=== PATIENT | male | born 1985 | race Caucasian/White ===

== ENCOUNTER 2021-06-06 06:00 | Day surgery (SDC) | payer OTHER ==
[~2021-06-06] VITALS: Ht 177.8 cm; Wt 118.0 kg
[~2021-06-06 06:00] MED LIST: CLONIDINE HCL0.2 MG PO; KLONOPIN1 MG PO
--- NOTE | 2021-06-06 08:58 | NUR ---
06/06/21 0858 Debbie Lopez 0853 PATIENT ARRIVES TO PACU UNRESPONSIVE TO PAIN. ORAL AIRWAY IN PLACE, MASK AT 6 LITERS.
[2021-06-06] MEDS ORDERED: IBUPROFEN600 MG PO (09:10)
[2021-06-06] MEDS ORDERED: OXYCODON-ACETA1 EAC2 PO (09:10)
[2021-06-06] MEDS ORDERED: ACETAMINOPHEN500 MG PO (09:11)
--- NOTE | 2021-06-06 09:20 | NUR ---
PATIENT BACK TO ROOM FROM PACU ON . RECEIVED REPORT FROM SARITHA RUTLEDGE. PATIENT IS AWAKE. VSS. RATES PAIN 4/10, DENIES NAUSEA. PAIN MEDICATION GIVEN PER EMAR. DRESSING IS CLEAN, DRY, AND INTACT. PATIENT DRINKING WATER AND EATING PUDDING. CALL LIGHT WITHIN REACH.
--- NOTE | 2021-06-06 12:13 | NUR ---
PT RATHER ANXIOUS BUT PLEASANT. ALERT AND ORIENTED. HIS WILL TAKE HOME FOLLOWING DC. SPENT TIME ENCOURAGING PT, HE REQUESTED PRAYER. WILL FOLLOW NEEDED
--- NOTE | 2021-06-08 12:52 | OR ---
[facility] [address], [place] [address] Signed DATE OF OPERATION: 06/06/2021 SURGEON: Perez Kraft MD PREOPERATIVE DIAGNOSIS: Work related umbilical hernia, painful. POSTOPERATIVE DIAGNOSIS: Work related umbilical hernia, painful. PROCEDURE: Repair umbilical hernia without mesh. ANESTHESIA: General endotracheal, Colin Aaron CRNA and local 20 mL of 0.25% Marcaine with epinephrine. INDICATION: This 35-year-old white man is a patient of JASBIR Quiñonez and is referred with a work related hernia that had developed in the umbilicus. The patient has noted a bulge in the umbilical area. His pain is mostly in the inferior left aspect of the umbilicus. He had been doing work related lifting causing sudden onset of severe pain in the area while working at [employer]. He is admitted at this time to undergo repair of the hernia. The risk of bleeding, infection, recurrence, as well as the failure to cure his pain problem has been reviewed in detail, he understands and wished to proceed. FINDINGS: There was an umbilical defect no more than 2 cm in size. Circumferential evaluation of the properitoneal space showed no evidence of other fascial defect or other abnormality. Given the small size of the hernia, implantation of mesh was not undertaken. The repair was primarily that of transverse closure of the fascia. DESCRIPTION OF PROCEDURE: The patient was brought to the operating room, given a general anesthetic. Preoperative antibiotic Ancef was given. Sequential compression device stockings were used and heparin subcutaneously administered. The abdomen was clipped, prepared with chlorhexidine solution and draped sterilely. A curvilinear incision was made around the umbilicus to the left. Dissection was carried down through the subcutaneous tissue with Electronically Signed By: PEREZ KRAFT MD 06/08/21 1252 PATIENT NAME: MUSTAPHA TALLEY OPERATIVE REPORT DATE OF : 89 REPORT #: [id number] PHYSICIAN: PEREZ KRAFT MD PCP: ELDER CORONA PA-C REPORT IS CONFIDENTIAL AND NOT TO BE RELEASED WITHOUT AUTHORIZATION [facility] [address], [place] [address] Signed blunt electrocautery dissection. The umbilical skin was densely adherent to the fascia and was freed with blunt electrocautery dissection, but a buttonhole defect was noted. The defect was well demonstrated and areas of the umbilical skin were debrided and closed with interrupted 3-0 Vicryl. Attention was then turned towards the fascial defect. It measured no more than 2 cm at most. The properitoneal space was developed with blunt dissection and examination laterally, particularly in the inferior lateral aspect on the left was undertaken showing no other fascial defect. Given the small size of the defect, it was more appropriate that primary repair be undertaken rather than implantation of Prolene mesh. On that basis, the fascia was reapproximated with interrupted 0 Prolene in a vertical mattress configuration. Approximately 5 or 6 sutures were placed to reapproximate the fascia. 30 mL of 0.25% Marcaine with epinephrine was injected locally. The repaired buttonhole of the umbilical skin was secured to the fascia and the dermis of the skin reapproximated with interrupted 2-0 Vicryl and a running subcuticular 3-0 Vicryl was used for the skin. Steri-Strips were applied as was an Acticoat dressing. The patient was ultimately extubated and transferred to the recovery room in good condition having suffered no complications. Sponge, needle, and instrument counts were reported as correct x3. MD SAE Rojas/MARQUISEL /[id number] cc: JASBIR Quiñonez Copies: ~ Electronically Signed By: PEREZ KRAFT MD 06/08/21 1252 PATIENT NAME: MUSTAPHA TALLEY OPERATIVE REPORT DATE OF : [birth year] REPORT #: [id number] PHYSICIAN: PEREZ KRAFT MD PCP: ELDER CORONA PA-C REPORT IS CONFIDENTIAL AND NOT TO BE RELEASED WITHOUT AUTHORIZATION
== END 2021-06-06 10:55 | disposition home or self-care (01) ==
LOC: DS 06:00
PROVIDERS: ATTEND Surgery
PROC: 0WQF0ZZ Repair Abdominal Wall, Open Approach (ICD-10-PCS; principal; 2021-06-06 06:45)
DX: K42.9 Umbilical hernia without obstruction or gangrene (principal); F41.1 Generalized anxiety disorder; R12 Heartburn; F17.290 Nicotine dependence, other tobacco product, uncomplicated
CPT/HCPCS: 85025; A9270; J0131; J0330; J0690; J1100; J1644; J1885; J2001; J2250; J2405; J2704; J3010; J7121

== ENCOUNTER 2024-12-30 14:49 | Emergency (ER) | payer OTHER ==
[~2024-12-30] VITALS: Ht 177.8 cm; Wt 119.3 kg
[~2024-12-30 14:49] MED LIST changes: +ACETAMINOPHEN500 MG PO; +IBUPROFEN600 MG PO; +OXYCODON-ACETA1 EAC2 PO
[2024-12-30] MEDS ORDERED: CEPHALEXIN500 M1 PO (15:58)
[2024-12-30] MEDS ORDERED: BACTRIM DS TAB1 EACH PO (15:58)
[2024-12-30] MEDS ORDERED: TRIMETHOPRIM/SULFAMETHOXAZOLE 1 EA TAB PO ONE (16:00)
[2024-12-30] MEDS ORDERED: CEPHALEXIN MONOHYDRATE 500 MG CAP PO ONE (16:00)
[2024-12-30] MEDS ORDERED: CLEOCIN HCL300 MG PO (16:44)
[2024-12-30 17:00] VITALS: BP 132/94
== END 2024-12-30 17:00 | disposition home or self-care (01) ==
LOC: ED 14:49
DX: L02.414 Cutaneous abscess of left upper limb (principal); L03.114 Cellulitis of left upper limb; I10 Essential (primary) hypertension; Z79.899 Other long term (current) drug therapy
CPT/HCPCS: 10060; 73080; 99283-25; A9270